=== PATIENT | male | born 2000 | race Caucasian/White ===

== ENCOUNTER 2019-02-21 10:16 | Emergency (ER) | payer OTHER ==
[~2019-02-21 10:16] MED LIST: NICO-306 BC; [UNRECOGNIZED DRUG - CODE] PO
--- NOTE | 2019-02-21 10:28 | ER Report ---
History and Physical Time Seen By MD: 10:24 Hx. of Stated Complaint: WAS DRINLKING LAST NIGHT AND JUMPING OVER FENCES. LANDED WRONG AND STATES HE DID A FACE PLANT, ROLLED RIGHT ANKLE AND HIS "ASS HURTS" HPI/ROS 18-year-old male with no significant past medical history who presents with right ankle pain. Patient states that last night while intoxicated he attempted to jump over a fence but upon landing twisted his ankle and fell forward onto his head. He states that he went home and earlier this morning he drank some alcohol approximately 8 AM to help with the pain. He states he is having difficulty bearing weight on his right ankle. He is looking on the outside of his right ankle. He denies any loss of consciousness, double vision. Remainder of the 14 system rev: Yes Allergies: Coded Allergies: No Known Drug Allergies (Verified , 02/21/19) Home Meds Active Scripts Ibuprofen (IBUPROFEN) 600 Mg Tablet, 1 TAB PO Q6H for PAIN for 7 Days, #30 TAB 0 Refills Prov:OLLIE STEELE MD 02/21/19 Discontinued Reported Medications Nicotine Polacrilex (NICOTINE GUM) 2 Mg Gum, 2 MG BC Q1H PRN for NICOTINE REPLACEMENT, GUM 04/20/17 Reviewed Nurses Notes: Yes Old Medical Records Reviewed: Yes Hx Smoking: Yes Smoking Status: Light Tobacco Smoker Exposure to Second Hand Smoke?: Yes Hx Substance Use Disorder: Yes Hx Alcohol Use: Yes Constitutional Vital Sign - Last 24 Hours 02/21/19 02/21/19 02/21/19 02/21/19 10:22 10:30 11:15 11:30 Temp 98.2 Pulse 90 88 83 Resp 20 B/P (MAP) 128/69 129/77 (94) 140/74 (96) 99/51 (67) Pulse Ox 93 94 92 O2 Delivery Room Air 02/21/19 02/21/19 02/21/19 02/21/19 11:45 12:00 12:30 12:45 Pulse 79 100 B/P (MAP) 148/71 (96) 133/73 (93) 108/77 (87) Pulse Ox 92 97 02/21/19 02/21/19 02/21/19 13:00 13:15 13:30 Pulse 80 88 B/P (MAP) 146/75 (98) 127/70 (89) 103/68 (80) Pulse Ox 99 93 Physical Exam General Appearance: Intoxicated but able to hold a conversation. Complete by girlfriend Head/Neck: 4 cm forehead hematoma with abrasions over the right inferior orbital rim. Eye tracking movements are intact. Pupils are equal and reactive to light. No pain to palpation over bilateral orbital rims. No septal hematoma. Oropharynx is clear. No midline C-spine tenderness with full range of motion of his neck wi thout pain. Eyes: Pupils equal and round no pallor or injection. ENT, Mouth: Mucous membranes are moist. Respiratory: There are no retractions, lungs are clear to auscultation. Cardiovascular: Regular rate and rhythm. [ ] Gastrointestinal: Tenderness to palpation on the right flank without appreciable ecchymosis or abrasions [Neurological:] No focal deficits. Moving nausea and vomiting. [Skin:] Abrasions to the face as noted above, abrasions over the left forearm without bony tenderness. [Musculoskeletal:] Palpation over the right lateral malleoli; no obvious deformity; mild swelling. 2+ distal DP pulse. Patient able to move toes. S ensation intact distally. All other major joints with full range of motion without pain. Medical Decision Making EKG/Imaging Imaging CT head: No acute intracranial pathology. CT abdomen and pelvis with contrast: No intra-abdominal pathology. Three-view x-rays: Mild widening of the lateral mortise joint with no definitive fracture. ED Course/Re-evaluation ED Course 18-year-old male who presents one day after falling over a fence complaining of some right ankle pain as well as multiple facial abrasions and some right sided abdominal discomfort. Arrival, patient is hemodynamically stable. He has no focal deficits. He is mildly intoxicated but is able to answer questions appropriately and does have his girlfriend at bedside who states that he is at his mental status baseline. Given the alcohol usage and the multiple facial abrasions, a head CT was ordered which did not demonstrate any acute pathology. Given his right-sided abdominal pain, a CT of the abdomen and pelvis was ordered which did not demonstrate any acute injuries. X-rays of the right ankle. Mild widening of the lateral mortise joint with no definitive fracture appreciated. Given this finding, we have elected to place the patient in a walking boot and he was provided with crutches. I discussed that he should follow up with orthopedics in the next several days for reevaluation and further management. Patient verbalized understanding and was in agreement with plan. Decision to Disposition Date: Feb 21, 2019 Decision to Disposition Time: 13:45 Depart Departure Latest Vital Signs Vital Signs Date Time Temp Pulse Resp B/P (MAP) Pulse Ox O2 Delivery O2 Flow Rate FiO2 02/21/19 13:30 88 103/68 (80) 93 02/21/19 10:22 98.2 20 Room Air Impression: Primary Impression: Ankle sprain Additional Impressions: Abrasion Head contusion Alcohol intoxication Condition: Improved Disposition: HOME OR SELF-CARE Referrals: EDENILSON DAMON MD (PCP) ALESSIA BROWN MD 5 Days New Scripts Ibuprofen (IBUPROFEN) 600 Mg Tablet 1 TAB PO Q6H for PAIN for 7 Days, #30 TAB 0 Refills Prov: OLLIE STEELE MD 02/21/19 Patient Instructions: Ankle Sprain (ED) Problem Qualifiers OLLIE STEELE MD Feb 21, 2019 10:28
[2019-02-21] MEDS ORDERED: IOPAMIDOL 76% 100 ML INFUS BTL 100 ML ONE (10:48)
--- NOTE | 2019-02-21 11:56 | RADIOLOGY IMAGING REPORT ---
FACILITY: [facility] PATIENT NAME: Alcides Martel : 2000 MR: [id number] V: [id number] EXAM DATE: ORDERING PHYSICIAN: OLLIE STEELE TECHNOLOGIST: Location: [facility] Patient: Alcides Martel : 2000 Visit/Account:[id number] Date of Sevice: 02/21/2019 EXAMINATION: CT Head without intravenous contrast HISTORY: Trauma. TECHNIQUE: Axial images were obtained from the skull base to the vertex without intravenous contrast . Sagittal and coronal reformatted images are also submitted. One of the following dose optimization techniques was utilized in the performance of this exam: Autom ated exposure control; adjustment of the mA and/or kV according to the patient's size; or use of an i terative reconstruction technique. Specific details can be referenced in the facility's radiology C T exam operational policy. COMPARISON: None available. FINDINGS: Brain volume: Normal. Ventricles: Negative. Acute ischemic changes: None. Hemorrhage: None. Masses / edema: None. Gorman-white: Negative. White matter: Negative. Vessels: Negative. Extra-axial: Negative. Calvarium / skull base: Mild frontal scalp contusion with no radiopaque foreign body or skull fractu re. Visualized sinuses / orbits: Mild to moderate mucosal thickening in the maxillary sinuses and left s phenoid sinus. IMPRESSION: 1. Mild frontal scalp contusion with no radiopaque foreign body or skull fracture. 2. No acute intracranial abnormality. 3. Mild to moderate mucosal thickening in the maxillary sinuses and left sphenoid sinus. Report Dictated By: Gurpreet Lemos MD at 02/21/2019 11:45 AM Report E-Signed By: Gurpreet Lemos MD at 02/21/2019 11:49 AM WSN:[id number]
--- NOTE | 2019-02-21 12:02 | RADIOLOGY IMAGING REPORT ---
FACILITY: [facility] PATIENT NAME: Alcides Martel : 2000 MR: [id number] V: [id number] EXAM DATE: ORDERING PHYSICIAN: OLLIE STEELE TECHNOLOGIST: Location: [facility] [place] Patient: Alcides Martel : 2000 Visit/Account:[id number] Date of Sevice: 02/21/2019 EXAMINATION: CT abdomen with IV contrast CT pelvis with IV contrast HISTORY: Right upper quadrant pain. TECHNIQUE: Spiral scan was through the abdomen and pelvis during injection of nonionic iodinated in travenous contrast. Sagittal and coronal reformatted images are also submitted. One of the following dose optimization techniques was utilized in the performance of this exam: Autom ated exposure control; adjustment of the mA and/or kV according to the patient's size; or use of an i terative reconstruction technique. Specific details can be referenced in the facility's radiology C T exam operational policy. CONTRAST: 75 mL of IV [id number] COMPARISON: None available. FINDINGS: Lower chest: Negative. Liver / biliary: Negative. Pancreas: Negative. Spleen: Negative. Adrenal glands: Negative. Kidneys: Negative. Pelvic structures: Negative. Bowel: Negative. Peritoneum / retroperitoneum / mesenteries: Negative. Vessels: Negative. Lymph nodes: Negative. Musculoskeletal / Body wall: Negative. IMPRESSION: No acute abnormality in the abdomen or pelvis. Report Dictated By: Gurpreet Lemos MD at 02/21/2019 11:49 AM Report E-Signed By: Gurpreet Lemos MD at 02/21/2019 11:55 AM WSN:[id number]
--- NOTE | 2019-02-21 12:27 | RADIOLOGY IMAGING REPORT ---
FACILITY: PATIENT NAME: Alcides Martel : 2000 MR: [id number] V: [id number] EXAM DATE: ORDERING PHYSICIAN: OLLIE STEELE TECHNOLOGIST: Location: [facility] Patient: Alcides Martel : 2000 Visit/Account:[id number] Date of Sevice: 02/21/2019 ANKLE 3 VIEW MIN RIGHT Indication: Lateral right ankle pain. Comparison: None available. Findings: 3 views of the right ankle. Mild widening of the lateral mortise joint. No definite fracture. No radiopaque foreign body. Impression: Mild widening of the lateral mortise joint with no definite fracture. Report Dictated By: Gurpreet Lemos MD at 02/21/2019 11:55 AM Report E-Signed By: Gurpreet Lemos MD at 02/21/2019 12:20 PM WSN:[id number]
[2019-02-21 13:30] VITALS: BP 103/68
[2019-02-21] MEDS ORDERED: IBUP600T22 PO (14:04)
== END 2019-02-21 14:08 | disposition home or self-care (01) ==
LOC: ER 10:49
DX: S93.401A Sprain of unspecified ligament of right ankle, initial encounter (principal); S00.93XA Contusion of unspecified part of head, initial encounter; F10.920 Alcohol use, unspecified with intoxication, uncomplicated; S00.81XA Abrasion of other part of head, initial encounter; S00.03XA Contusion of scalp, initial encounter
CPT/HCPCS: 70450; 73610; 74177; 99284; Q9967